=== PATIENT | female | born 1975 | race Caucasian/White ===

== ENCOUNTER → 2020-09-30 | Outpatient (CLI) | payer BC ==
[~2020-09-30] MED LIST: IBU600 MG PO; PERCOCET 325 MG1 TA2 PO; PRENATAL VITAMI1 TA5 PO
== END ==
LOC: COL.RAD 09-29 12:00
DX: M53.3 Sacrococcygeal disorders, not elsewhere classified (principal)
CPT/HCPCS: J3301; Q9967

== ENCOUNTER → 2022-06-26 | Outpatient (CLI) | payer BC | LOC: MC.RAD 11:26 | DX: Z12.31 Encounter for screening mammogram for malignant neoplasm of breast (principal); Z00.00 Encounter for general adult medical examination without abnormal findings ==